=== PATIENT | female | born 1990 ===

== ENCOUNTER 2022-05-01 09:02 | Outpatient (CLI) | payer OTHER ==
[2022-05-01] MEDS ORDERED: PRENATAL TABLE1 EAC5 (15:42)
[2022-05-01] MEDS ORDERED: PROGESTERONE100 M1 (15:43)
== END 2022-05-01 10:48 | disposition home or self-care (01) ==
LOC: PRENATAL 09:02
PROVIDERS: ATTEND Obstetrics & Gynecology Maternal & Fetal Medicine
DX: O35.0XX0 Maternal care for (suspected) central nervous system malformation in fetus, not applicable or unspecified (principal); O35.3XX0 Maternal care for (suspected) damage to fetus from viral disease in mother, not applicable or unspecified; O26.20 Pregnancy care for patient with recurrent pregnancy loss, unspecified trimester; O26.879 Cervical shortening, unspecified trimester; Z3A.21 21 weeks gestation of pregnancy

== ENCOUNTER 2022-05-01 13:27 | Day surgery (SDC) | payer OTHER ==
[~2022-05-01] VITALS: Ht 165.1 cm; Wt 82.1 kg
[2022-05-01] MEDS ORDERED: PRENATAL TABLE1 EAC5 (15:42)
[2022-05-01] MEDS ORDERED: PROGESTERONE100 M1 (15:43)
== END 2022-05-01 23:25 | disposition home or self-care (01) ==
LOC: CIR.AMB 13:27 → LDR 13:27 → EDSTATUS 19:30 → LDR 23:25 → CIR.AMB 23:25
PROVIDERS: ATTEND Obstetrics & Gynecology Maternal & Fetal Medicine
DX: O34.32 Maternal care for cervical incompetence, second trimester (principal); Z3A.21 21 weeks gestation of pregnancy

== ENCOUNTER 2022-06-05 14:11 | Outpatient (CLI) | payer OTHER ==
[~2022-06-05 14:11] MED LIST: PRENATAL TABLE1 EAC5; PROGESTERONE100 M1
== END 2022-06-05 15:20 | disposition home or self-care (01) ==
LOC: PRENATAL 14:11
PROVIDERS: ATTEND Obstetrics & Gynecology Maternal & Fetal Medicine
DX: O26.849 Uterine size-date discrepancy, unspecified trimester (principal); O35.0XX0 Maternal care for (suspected) central nervous system malformation in fetus, not applicable or unspecified; O26.879 Cervical shortening, unspecified trimester; Z3A.26 26 weeks gestation of pregnancy

== ENCOUNTER 2022-08-14 15:07 | Outpatient (CLI) | payer OTHER | END 2022-08-14 17:15 | disposition home or self-care (01) | LOC: PRENATAL 15:07 | PROVIDERS: ATTEND Obstetrics & Gynecology Maternal & Fetal Medicine | DX: O26.849 Uterine size-date discrepancy, unspecified trimester (principal); O36.8199 Decreased fetal movements, unspecified trimester, other fetus; O35.9XX0 Maternal care for (suspected) fetal abnormality and damage, unspecified, not applicable or unspecified; O36.5990 Maternal care for other known or suspected poor fetal growth, unspecified trimester, not applicable or unspecified; Z3A.36 36 weeks gestation of pregnancy ==